=== PATIENT | male | born 1970 | race Caucasian/White ===

== ENCOUNTER 2018-07-13 22:10 | Inpatient (IN) | payer BC ==
[2018-07-13 22:55] LABS: #Lymphocytes 0.7 thou/uL (1.20-3.40); #Monocytes 0.4 thou/uL (0.11-0.59); %Basophils 0.3 % (0.0-1.0); %Eosinophils 0.5 % (0.0-10.0); %Lymphocytes 9.3 % (21.0-51.0); %Monocytes 5.2 % (0.0-10.0); %Neutrophils 84.7 % (42.0-75.0); Mean Corpuscular HGB CONC 34.4 g/dL (32.0-36.0); Mean Corpuscular Hemoglobin 33.2 pg (27.0-31.0); Mean Corpuscular Volume 96.5 fL (78.0-98.0); Mean Platelet Volume 6.4 fL (7.4-10.4); Platelet Count 203 thou/uL (130-400); RBC Distribution Width 12.9 % (11.5-14.5); Red Blood Cell (RBC) Count 4.21 mill/uL (4.70-6.10); White Blood Cell (WBC) Count 7.1 thou/uL (4.8-10.8)
[2018-07-13 23:18] LABS: ALT (SGPT) 17 U/L (8-55); AST (SGOT) 19 U/L (5-34); Albumin 4.4 g/dL (3.5-5.0); Alkaline Phosphatase 48 U/L (40-150); Anion Gap 14 mmol/L (10-20); BUN (Urea Nitrogen) 18 mg/dL (8.9-20.6); Bilirubin, Total 0.6 mg/dL (0.2-1.2); Calc. Creatinine Clearance 0 mL/min (70-130); Calcium 9.5 mg/dL (7.8-10.44); Carbon Dioxide 24 mmol/L (22-29); Chloride 103 mmol/L (98-107); Estimated GFR-MDRD 72; Globulin 3.4 g/dL (2.4-3.5); Glucose 115 mg/dL (70-105); Lipase 20 U/L (8-78); Potassium 3.9 mmol/L (3.5-5.1); Protein, Total 7.8 g/dL (6.0-8.3); Sodium 137 mmol/L (136-145)
[2018-07-14] MEDS ORDERED: ISOVUE-370 76%-LOCM 1 ML ONE (07:53)
--- NOTE | 2018-07-14 11:24 | CT ---
EMERGENT AFTER HOURS CT ABDOMEN AND PELVIS WITH IV CONTRAST: Date: 07-14-18 History: Rectal bleeding, bloody diarrhea. Comparison: None available. IMPRESSION: 1. No acute findings are seen in the abdomen or pelvis. 2. No CT evidence of appendicitis. 3. Mild bibasilar atelectasis with calcified granuloma at the right lung base. 4. Minimal cortical scarring right kidney. 5. Findings are in agreement with the preliminary report by YAMILE. POS: SUNG
[2018-07-14] MEDS ORDERED: Ondansetron ODT 4 MG TAB PO PRN (12:23)
[2018-07-14] MEDS ORDERED: Ondansetron HCl/PF 4 MG/2 ML Vial IVP PRN (12:23)
[2018-07-14] MEDS ORDERED: Acetaminophen 325 MG TAB PO PRN ×2 (12:23→13:01)
[2018-07-14] MEDS ORDERED: Acetaminophen 650 MG Suppository PR PRN (13:01)
[2018-07-14] MEDS ORDERED: Bisacodyl 5 MG TAB PO PRN (13:01)
[2018-07-14 13:45] LABS: Hemoglobin 13.8 g/dL (14.0-18.0)
--- NOTE | 2018-07-14 15:32 | HP ---
PRIMARY CARE PROVIDER: None. CHIEF COMPLAINT: Hematochezia. HISTORY OF PRESENT ILLNESS: Mr. Sanders is a pleasant 48-year-old gentleman who was seen at [facility] on 07/14/2018. He reports that he was doing well until around 7:00 p.m. yesterday. At that time, he went to use the restroom. He had diarrhea. He reports that the toilet filled with blood, bright red in color. He took some Imodium and since then he has only had a couple of small bowel movements, both of which had blood in them. He reports pain across his lower abdomen, sharp, 6/10 at its worst, on and off, impr alfredo with bowel movement, not accompanied by chest pain, nausea or vomiting. He reports chills, but no fevers. He presented to the emergency room because of concern regarding hematochezia. REVIEW OF SYSTEMS: All other systems reviewed and found to be negative. PAST MEDICAL HISTORY: Dyslipidemia. PAST SURGICAL HISTORY: Ulnar nerve surgery on the left side, right carpal tunnel surgery, neck fusio n. SOCIAL HISTORY: Patient drinks 6 beers every day. He denies any tobacco use or recreational drug us e. FAMILY HISTORY: Prostate cancer in his father. ALLERGIES: No known drug allergies. CURRENT MEDICATIONS: None. PHYSICAL EXAMINATION: GENERAL: On examination, Mr. Sanders is awake and alert, not in acute distress. VITAL SIGNS: Blood pressure is 118/72, pulse 92, respiratory rate 16, oxygen saturation 97% on room air, temperature is 99.5 degrees Fahrenheit. EYES: No scleral icterus. No conjunctival pallor. ENT: Moist mucosal membranes, no oropharyngeal erythema or exudates. NECK: Supple, nontender, trachea is midline. RESPIRATORY: Accessory muscles of breathing are not active. Chest wall movements are symmetric bila terally. LUNGS: Clear to auscultation without wheeze, no rhonchi or crepitations. CARDIOVASCULAR: S1 and S2 are heard, regular. Peripheral pulses are palpable. No carotid bruit, no pericardial rub. ABDOMEN: Soft, nontender, bowel sounds are heard, no hepatomegaly, no splenomegaly. NEUROLOGIC: Cranial nerves II-XII intact, deep tendon reflexes are 2+. MUSCULOSKELETAL: Power is 5/5 in all 4 extremities. SKIN: No rashes or subcutaneous nodules. LYMPHATIC: No cervical lymphadenopathy. PSYCHIATRIC: Normal mood, normal affect, patient is oriented to person, place, and time. IMAGING DATA AND LABORATORY DATA: Mr. Sanders's labs and investigations were reviewed. He had a CT scan of the abdomen and pelvis, which did not show any acute findings in the abdomen or pelvis. He h ad mild bibasilar atelectasis with calcified granuloma at the right lung base and he had minimal helene ical scarring of the right kidney. He has a normal white count, normal hemoglobin of 14, normal plat elet count of 203,000, unremarkable comprehensive metabolic profile and a normal lactic acid level. ASSESSMENT AND PLAN: Mr. Sanders is a pleasant 48-year-old gentleman who was seen at [facility] on 07/14/2018. His problem list includes, 1. Hematochezia: He has a lower gastrointestinal bleed, unknown etiology. He will be admitted to [facility] for further management including rechecking his hemoglobin level. GI Service will be con sulted for possible scope studies. He is currently hemodynamically stable. 2. Dyslipidemia: The patient is currently not on any medications for this. He will be advised to f soheilalow up with his primary care provider for management of dyslipidemia. 3. Stool cultures were sent out for infection. It is negative for Campylobacter antigen, E. coli, S sai toxins 1 and 2 and preliminary stool culture is showing few normal enteric yvette. It is positiv e for fecal occult blood. LEVEL OF RISK: Moderate. LEVEL OF COMPLEXITY: Moderate.
[2018-07-14] MEDS: Sodium Chloride 0.9% 1,000 ML IV SCH ×2 (16:06→21:34)
[2018-07-14 19:56] VITALS: BMI 30.9
[2018-07-14] MEDS: GoLYTELY 4,000 ml Bottle PO SCH (21:32)
[2018-07-15 04:14] LABS: #Eosinphils 0.1 thou/uL (0.0-0.7); #Lymphocytes 1.3 thou/uL (1.20-3.40); #Monocytes 0.5 thou/uL (0.11-0.59); %Eosinophils 1.9 % (0.0-10.0); %Lymphocytes 26.8 % (21.0-51.0); %Monocytes 10.7 % (0.0-10.0); %Neutrophils 59.6 % (42.0-75.0); Hemoglobin 13.2 g/dL (14.0-18.0); Mean Corpuscular HGB CONC 33.9 g/dL (32.0-36.0); Mean Corpuscular Hemoglobin 33.1 pg (27.0-31.0); Mean Corpuscular Volume 97.4 fL (78.0-98.0); Mean Platelet Volume 6.4 fL (7.4-10.4); Platelet Count 179 thou/uL (130-400); RBC Distribution Width 12.9 % (11.5-14.5); Red Blood Cell (RBC) Count 3.98 mill/uL (4.70-6.10)
[2018-07-15 04:31] LABS: Anion Gap 10 mmol/L (10-20); BUN (Urea Nitrogen) 12 mg/dL (8.9-20.6); Calc. Creatinine Clearance 111 mL/min (70-130); Calcium 8.8 mg/dL (7.8-10.44); Carbon Dioxide 29 mmol/L (22-29); Chloride 105 mmol/L (98-107); Estimated GFR-MDRD 73; Glucose 101 mg/dL (70-105); Potassium 3.9 mmol/L (3.5-5.1); Sodium 140 mmol/L (136-145)
[2018-07-15] MEDS: GoLYTELY 4,000 ml Bottle PO SCH (05:22)
--- NOTE | 2018-07-15 08:27 | CON ---
DATE OF CONSULTATION: 07/14/2018 REFERRING PHYSICIAN: Salvador Fields M.D. REASON FOR CONSULTATION: GI bleeding. HISTORY OF PRESENT ILLNESS: Mr. Nelson Sanders is a very pleasant 48-year-old male with h istory of abdominal cramping, diarrhea, and rectal bleeding. This began approximately 7 p.m. that wa s last night. He says he passed a fairly large amount of bloody stool to begin with. Subsequently, he has had a couple of more bloody stools. He is also passing small amount of blood this morning. T he patient also had a shaking chill briefly last night. His diarrhea has resolved and he is not blee ding anymore today . The patient had no similar episodes in the past. The patient has no famil y history of colon cancer. His bowel movements are usually irregular and he has a BM every day. He has no other relevant history. ALLERGIES: None. SOCIAL HISTORY: The patient does not smoke. He drinks alcohol one six-pack every night. MEDICAL ILLNESSES: Dyslipidemia. SURGERIES: 1. Ulnar surgery on the left side by Dr. Caruso in the past. 2. Right carpal tunnel syndrome by Dr. Martinez. 3. Cervical spine, neck fusion in the past. FAMILY HISTORY: Father with prostate cancer. MEDICATIONS: None. REVIEW OF SYSTEMS: A 10-point system reviewed. Constitutional: He had some bleeding episode since last night. His energy level is good. No history of any weight loss. Respiratory system: No histo ry of chronic cough, hemoptysis, dyspnea. Cardiovascular system: No chest pain, no palpitation, no exertional dyspnea, orthopnea or PND. Gastrointestinal: As in history of present illness. Genitour inary: No dysuria or hematuria. Musculoskeletal: Unremarkable. Endocrine: Unremarkable. Hematol ogic: Unremarkable. Neuropsychiatric: Unremarkable. PHYSICAL EXAMINATION: GENERAL: This is a very pleasant male, who appears very comfortable. He is awake, alert, oriented to time, place, and person. VITAL SIGNS: He is afebrile. Pulse is 93, blood pressure 138/87. HEENT: Conjunctivae clear. NECK: Supple. No adenitis or thyromegaly noted. CARDIOVASCULAR SYSTEM: First and second heart sounds are normal. LUNGS: Clear to auscultation. ABDOMEN: Abdomen is soft. Abdomen is nondistended. Abdomen is nontender. No organomegaly or musa s. EXTREMITIES: Reveal no edema. LABORATORY DATA: From this morning, CBC: WBC 7100, hemoglobin 14 dropped to 13.8, hematocrit 40.6 w ent up to 41, MCV 96.5, platelet count is 203,000, polymorphs 84, lymphocytes 9, monocytes 5.2%. Rosie m panel: Glucose 115, lactic acid 1.2, calcium 9.5, bilirubin 0.6, AST 19, ALT 17, alkaline phosphat ase 48, albumin 4.4. Chem-7 is normal. CLINICAL IMPRESSION: A 48-year-old male with hematochezia, abdominal cramping and diarrhea briefly. The patient's blood count stable. Based on the history, it appears to be most likel y infectious diarrhea. However, because of the age of 48 with hematochezia, I believe he should have a colonoscopy. This was explained to patient and he agrees. The patient will have a colonoscopy to birgit.
[2018-07-15] MEDS ORDERED: Promethazine HCl 25 MG/ML VIAL SLOW IVP PRN (14:30)
[2018-07-15] MEDS ORDERED: Ondansetron HCl/PF 4 MG/2 ML Vial IVP PRN (14:30)
[2018-07-15] MEDS ORDERED: Promethazine HCl 25 MG/ML VIAL IM PRN (14:30)
[2018-07-15 16:27] VITALS: BP 130/81; TEMP 98.1
--- NOTE | 2018-07-15 17:00 | DIS ---
DATE OF DISCHARGE: 07/15/2018 DISCHARGE DISPOSITION: Home. FOLLOWUP: Follow up with primary care physician in one week. The patient does not have a primary ca re physician at this time. He is planning to see Dr. Zoe Irizarry at [facility]. Foll ow up with GI clinic to see Dr. Bay in 3-4 weeks. ALLERGIES: No known drug allergies. BRIEF HOSPITAL COURSE: Patient is a 48-year-old male who presented to the emergency room with hemato chezia. Please refer to the history and physical for further details. The patient was admitted to the hospital with a diagnosis of lower GI bleeding. His H and H was jh tored closely. Patient was evaluated by Gastroenterology, Dr. Bay. His H and H this morning w as 13.2 from 14.0. Stool workup was essentially negative. A colonoscopy was performed that was esse ntially negative per verbal report from Dr. Bay. Official report is pending at this time. He also had a CT scan of the abdomen and pelvis with IV contrast that was essentially negative except fo r minimal cortical scarring of the right kidney. Patient has been cleared by Gastroenterology for di rodolfo. His most likely etiology for hematochezia appears to be internal hemorrhoids. FINAL DIAGNOSES: 1. Lower gastrointestinal bleeding, probably secondary to internal hemorrhoids. 2. Anemia secondary to acute gastrointestinal blood loss. 3. Dyslipidemia. 4. Obesity with a BMI at 31. 5. Chronic kidney disease stage 2. 6. Daily alcohol use. Patient was advised to quit drinking. 7. Family history of prostate cancer. Plan of care was discussed with the patient and he stated understanding.
--- NOTE | 2018-07-15 19:37 | OP ---
DATE OF PROCEDURE: 07/15/2018 OPERATIVE PROCEDURE: Colonoscopy. PREOPERATIVE DIAGNOSIS: A 48-year-old male with rectal bleeding, no abdominal pain. The p atient underwent a colonoscopy. POSTOPERATIVE DIAGNOSES: 1. Very occasional sigmoid diverticular disease. 2. Hemorrhoids. There are no other pathology to explain the rectal bleeding. Based on endoscopic f indings, I believe he most likely has bleeding from the hemorrhoids. PROCEDURE NOTE: The patient was placed on his left lateral position and was given sedation by Anesth esia Department. A rectal exam was done before the scope was advanced into the rectum. No lesions w ere felt on rectal exam. A Pentax video colonoscope was introduced into the rectum and advanced all the way into the cecum. The prep was excellent. The appendical opening, ileocecal valve, cecum, no p athology seen. Withdrawal from the cecum, ascending colon, hepatic flexure, no pathology seen. The transverse colon, splenic flexure, descending colon, no pathology seen. There were occasional divert icula seen in the sigmoid colon area. Retroflexion of scope in the rectum, hemorrhoids. RECOMMENDATIONS: 1. Regular diet. 2. Discharge home later today.
== END 2018-07-15 17:27 | disposition home or self-care (01) | DRG 394 ==
LOC: ERS 22:10 → ERHOLD 07-14 03:15 → 2NO 07-14 18:17 → T4-A 07-14 19:34
PROVIDERS: ADMIT Internal Medicine; ATTEND Internal Medicine
PROC: 0DJD8ZZ Inspection of Lower Intestinal Tract, Via Natural or Artificial Opening Endoscopic (ICD-10-PCS; principal; 2018-07-15)
DX: K64.9 Unspecified hemorrhoids (principal); D62 Acute posthemorrhagic anemia; E78.5 Hyperlipidemia, unspecified; K57.30 Diverticulosis of large intestine without perforation or abscess without bleeding; E66.9 Obesity, unspecified; Z68.31 Body mass index [BMI] 31.0-31.9, adult; I12.9 Hypertensive chronic kidney disease with stage 1 through stage 4 chronic kidney disease, or unspecified chronic kidney disease; N18.2 Chronic kidney disease, stage 2 (mild)
CPT/HCPCS: 36415; 74177; 80048; 80053; 82274; 83605; 83690; 85014; 85018; 85025; 86850; 86900; 86901; 87045; 87046; 87449; 87899; 96360

== ENCOUNTER 2022-04-28 22:20 | Emergency (ER) | payer BC | END 2022-04-29 00:15 | disposition home or self-care (01) | LOC: ERS 22:20 | DX: R05.9 Cough, unspecified (principal); Z20.822 Contact with and (suspected) exposure to COVID-19; E78.5 Hyperlipidemia, unspecified | CPT/HCPCS: 99283; U0003; U0005 ==

== ENCOUNTER 2022-11-29 21:07 | Emergency (ER) | payer BC | END 2022-11-29 21:55 | disposition home or self-care (01) | LOC: ERS 21:07 | DX: L03.115 Cellulitis of right lower limb (principal); E78.5 Hyperlipidemia, unspecified | CPT/HCPCS: 99283 ==

== ENCOUNTER 2023-06-12 20:17 | Emergency (ER) | payer BC | END 2023-06-12 22:11 | disposition home or self-care (01) | LOC: ERS 20:17 | DX: S63.602A Unspecified sprain of left thumb, initial encounter (principal); E78.5 Hyperlipidemia, unspecified; W22.8XXA Striking against or struck by other objects, initial encounter; Y99.0 Civilian activity done for income or pay; Z79.899 Other long term (current) drug therapy ==

== ENCOUNTER 2023-09-12 14:41 | Emergency (ER) | payer BC ==
[2023-09-12] MEDS ORDERED: Ketorolac Tromethamine 30 MG/ML VIAL ONE (15:54)
== END 2023-09-12 16:38 | disposition home or self-care (01) ==
LOC: ERS 14:41
DX: L03.311 Cellulitis of abdominal wall (principal); E78.5 Hyperlipidemia, unspecified; Z79.899 Other long term (current) drug therapy
CPT/HCPCS: 99283; J1885

== ENCOUNTER 2024-12-30 16:37 | Outpatient (CLI) | payer BC | END 2024-12-30 16:38 | disposition home or self-care (01) | LOC: RAD 16:37 | PROVIDERS: ATTEND Nurse Practitioner Family | DX: M25.551 Pain in right hip (principal); M25.552 Pain in left hip ==

== ENCOUNTER 2025-06-15 15:32 | Emergency (ER) | payer BC ==
[2025-06-15] MEDS ORDERED: Acetaminophen 325 MG TAB ONE (18:28)
[2025-06-15] MEDS ORDERED: Ketorolac Tromethamine 30 MG (1 mL) VIAL ONE (18:28)
== END 2025-06-15 18:35 | disposition home or self-care (01) ==
LOC: ERS 15:32
DX: S46.912A Strain of unspecified muscle, fascia and tendon at shoulder and upper arm level, left arm, initial encounter (principal); M77.12 Lateral epicondylitis, left elbow; E78.5 Hyperlipidemia, unspecified; X58.XXXA Exposure to other specified factors, initial encounter; Z79.899 Other long term (current) drug therapy
CPT/HCPCS: 96372; J1885

== ENCOUNTER 2025-09-07 14:28 | Outpatient (CLI) | payer BC | END 2025-09-07 14:29 | disposition home or self-care (01) | LOC: BICMRI 14:28 | PROVIDERS: ATTEND Orthopaedic Surgery | DX: M75.102 Unspecified rotator cuff tear or rupture of left shoulder, not specified as traumatic (principal); S43.432A Superior glenoid labrum lesion of left shoulder, initial encounter; M19.012 Primary osteoarthritis, left shoulder; M25.712 Osteophyte, left shoulder; M67.912 Unspecified disorder of synovium and tendon, left shoulder | CPT/HCPCS: 70210 ==